=== PATIENT | female | born 1960 | race African-American/Black ===

== ENCOUNTER 2021-06-03 20:03 | Emergency (ER) | payer OTHER, BC, SELFPAY ==
--- NOTE | ~2021-06-03 | CT_ITS ---
EXAMINATION: CT cervical spine wo con DATE: 06/03/2021 21:44 INDICATION: Neck pain TECHNIQUE: Computed tomography (CT) of the cervical spine was performed without intravenous contrast. The dose-length product (DLP) was 300.77 mGy-cm. Automated exposure control and iterative reconstruc tion technique were employed. COMPARISON: None FINDINGS: There is no fracture, dislocation, or subluxation. The vertebral body heights and alignment are normal. There is mild loss of intervertebral disc space height at C6-7. The odontoid is intact. Small degenerative osteophytes project from the anterior endplates of multiple vertebral bodies. The prevertebral soft tissues are normal. There is mild multilevel facet and uncovertebral joint osteoart hritis. Calcified right paratracheal lymph nodes are consistent with old granulomatous disease. IMPRESSION: 1. Mild cervical spondylosis without acute findings. Reviewed, dictated and finalized at location F. H CUTTING MACHINE OPERATOR
[2021-06-03 20:11] VITALS: BP 132/73; PULSE 77; RESP 18; TEMP 36.2; O2SAT 98
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
[2021-06-03 22:40] VITALS: BP 139/81; PULSE 72; RESP 18; O2SAT 100
== END 2021-06-03 22:39 | disposition home or self-care (01) ==
PROVIDERS: Emergency Provider Emergency Medicine; PCP Student in an Organized Health Care Education/Training Program
DX: S16.1XXA Strain of muscle, fascia and tendon at neck level, initial encounter (principal); V49.40XA Driver injured in collision with unspecified motor vehicles in traffic accident, initial encounter
CPT/HCPCS: 72125; 99284; L0140

== ENCOUNTER 2021-06-14 08:33 | Outpatient (CLI) | payer BC, SELFPAY ==
--- NOTE | ~2021-06-14 | XR_ITS ---
EXAMINATION: XR thoracic spine 2V DATE: 06/14/2021 09:15 INDICATION: Back pain. Neck pain. TECHNIQUE: 2 views of thoracic spine standing were obtained. COMPARISON: Chest CT 05/10/2012 FINDINGS: There is 5 degrees dextrocurvature of thoracolumbar spine. There is mild chronic anterior w edging of T6 and T8 vertebral bodies. There is mildly decreased disc height at T6-T7. Calcified media stinal lymph nodes are consistent with old granulomatous disease. IMPRESSION: 1. Mild thoracic spondylosis. Reviewed, dictated and finalized at location A. B SEWER
--- NOTE | ~2021-06-14 | XR_ITS ---
EXAMINATION: XR_[id number]_CR DATE: 06/14/2021 09:15 INDICATION: Neck pain and mid back pain. TECHNIQUE: Flexion-extension views of the cervical spine were obtained. COMPARISON: CT cervical spine 06/03/2021 FINDINGS: Bone alignment is normal. Inferior cervical spine is hypomobile with flexion and extension. Vertebral body heights are normal. There is moderately decreased disc height at C6-C7. There is mild central canal stenosis at C6-C7. No prevertebral soft tissue swelling. IMPRESSION: 1. Moderate spondylosis at C6-C7. 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
== END 2021-06-14 08:34 ==
PROVIDERS: Visit Provider Chiropractor
DX: M47.894 Other spondylosis, thoracic region (principal); M47.892 Other spondylosis, cervical region
CPT/HCPCS: 72040; 72070

== ENCOUNTER 2023-12-26 15:06 | Emergency (ER) | payer BC, SELFPAY ==
--- NOTE | ~2023-12-26 | XR_ITS ---
EXAMINATION: XR chest 2V DATE: 12/26/2023 15:49 INDICATION: Chest pain. TECHNIQUE: Frontal and lateral views of the chest were obtained. COMPARISON: CT abdomen and pelvis 01/20/2016 FINDINGS: There is no pneumonia, pleural effusion, or pneumothorax. The heart size is normal. Calcifi ed mediastinal and right hilar lymph nodes are consistent with old granulomatous disease. There is mi ld chronic anterior wedging of multiple mid thoracic vertebral bodies. IMPRESSION: 1. No acute cardiopulmonary disease. Reviewed, dictated and finalized at location A.
[2023-12-26 15:03] VITALS: BP 172/91; PULSE 86; RESP 16; TEMP 36.7; O2SAT 100
--- NOTE | 2023-12-26 15:18 | ECG_ITS ---
Test Date: 2023-12-26 15:08:56 Measurements Intervals [place] Rate: 83 P: 11 WA: 135 QRS: 32 QRSD: 82 T: 10 QT: 385 QTc: 454 Interpretive Statements SINUS RHYTHM NONSPECIFIC T-WAVE ABNORMALITY No previous ECG available for comparison Electronically Signed On 12-26-2023 17:15:28 CDT by Bernardo Smith M.D.
--- NOTE | 2023-12-26 15:32 | ED.CHESTPAIN ---
HPI - Chest Pain General Chief Complaint: Chest Pain Stated Complaint: Chest pressure Time Seen by Provider: 12/26/23 15:12 History of Present Illness HPI narrative: 62-year-old female with a history of diabetes, hypertension, hyperlipidemia presenting with chest pressure. States that she was eating when she developed left upper quadrant and left-sided chest pressure associated with belching. States that she felt like it was difficult taking a big breath. She has never had this happen before so she became concerned. No leg swelling, palpitations, lightheadedness. No nausea or vomiting. No infectious symptoms. Currently, she states that she is starting to feel improved. Related Data Allergies Allergy/AdvReac Type Severity Reaction Status Date / Time prochlorperazine Allergy Mild Other Verified 12/26/23 15:21 Review of Systems Review of Systems: All systems reviewed & are unremarkable except as noted in HPI and below PMFSH Family History Family History Mother Hypertension Patient's mother is in good health Family history of diabetes mellitus in first degree relative Sibling Patient's brother is in good health Father Patient's father is Social History Social History Smoking status: Never smoker Second hand tobacco smoke exposure: No Alcohol intake: never Exam Narrative: GENERAL: Well-appearing, well-nourished, and in no acute distress. HEAD: Normocephalic, atraumatic. EYES: PERRLA and EOMI. ENT: Grossly unremarkable NECK: Supple. CHEST: Clear to auscultation. No respiratory distress. HEART: Regular rate and rhythm ABDOMEN: Soft, nontender, nondistended EXTREMITIES: Normal range of motion. No edema. SKIN: Warm, dry, no rash. NEURO: No focal deficits. Alert and oriented x3. PSYCH: Normal mood and affect. Course Vital Signs Vital signs: Vital Signs Temperature 98.0 F 12/26/23 15:03 Pulse Rate 86 12/26/23 15:03 Respiratory Rate 16 12/26/23 15:03 Blood Pressure 172/91 H 12/26/23 15:03 Pulse Oximetry 100 12/26/23 15:03 Oxygen Delivery Room Air 12/26/23 15:03 Temperature 98.2 F 12/26/23 22:18 Pulse Rate 78 12/26/23 22:18 Respiratory Rate 18 12/26/23 22:18 Blood Pressure 152/72 H 12/26/23 22:18 Pulse Oximetry 98 12/26/23 22:18 Oxygen Delivery Room Air 12/26/23 15:03 MDM - Chest Pain MDM Narrative Medical decision making narrative: 62-year-old female presenting with chest pressure, belching, shortness of breath. Patient hypertensive otherwise vitals are within normal limits. EKG per my interpretation shows normal sinus rhythm, nonspecific T-wave flattening, no ST elevations or depressions. Troponin undetectable. Creatinine is 1.20, patient states that she does have a history of slightly bumped kidney numbers. Repeat EKG shows normal sinus rhythm, resolution of the nonspecific T-wave changes, no ST elevations or depressions. Troponin remains undetectable. Patient given a GI cocktail and states that it did help with her epigastric pain. She does not have pain in her chest any more. 6 hour troponin remains undetectable. Feel she is safe for outpatient management. States that she has a prescription for omeprazole, advised that she start taking this daily for the next few weeks. Advised close PCP follow-up. Strict return precautions given. Patient is agreeable this plan. Discharged in stable condition. Differential Diagnosis Differential diagnosis: Likely fracture of rib, stable angina, atypical chest pain, costochondritis and chest pain Medical Records Data Attestation: I reviewed the patient's medical records. Lab Data Attestation: I reviewed the patient's lab results. 12/26/23 15:26 12/26/23 15:26 Labs: Lab Results 12/26/23 12/26/23 12/26/23 Range/Units 15:26 18:06 19:53 W
[2023-12-26 15:46] LABS: Alanine Aminotransferase 20 U/L (6-35); Albumin Level 4.6 g/dL (3.5-5.1); Alkaline Phosphatase 61 U/L (38-126); Anion Gap 13 mmol/L (4-12); Aspartate Amino Transferase 29 U/L (14-36); Bilirubin,Total 0.4 mg/dL (0.2-1.3); Blood Urea Nitrogen 17 mg/dL (7-17); Calcium 9.2 mg/dL (8.4-10.2); Carbon Dioxide 25 mmol/L (22-30); Chloride 100 mmol/L (98-107); Estimated CRCL calculation 37 ml/min; Estimated Glomerular Filt Rate 55; Glucose 107 mg/dL (65-110); Lipase 228 U/L (23-300); Potassium 4.1 mmol/L (3.4-5.0); Sodium 138 mmol/L (137-145)
[2023-12-26 15:50] LABS: Basophils Percent Auto 0.8 % (0.2-1.2); Eosinophils Absolute Auto 0.1 K/mm3 (0-0.3); Eosinophils Percent Auto 2.6 % (0-4.4); Hematocrit 38.5 % (37.0-47.0); Hemoglobin 12.6 g/dL (12.0-15.0); Immature Granulocyte Absolute 0.01 K/mm3 (0.00-0.031); Immature Granulocyte Percent A 0.3 % (0-0.5); Lymphocytes Absolute Auto 1.47 K/mm3 (0.9-3.2); Lymphocytes Percent Auto 38.6 % (18.3-44.2); Mean Corpuscular HGB Conc 32.7 g/dl (32-36); Mean Corpuscular Hemoglobin 28.7 pg (26-34); Mean Corpuscular Volume 87.7 fl (80-100); Mean Platelet Volume 11.1 fl (7.4-10.4); Monocytes Absolute Auto 0.4 K/mm3 (0.1-0.6); Neutrophils Absolute Auto 1.8 K/mm3 (1.3-6.7); Neutrophils Percent Auto 47.7 % (45.5-73.1); Platelet Count Result 210 k/mm3 (150-375); Red Blood Count 4.39 M/mm3 (4.2-5.4); Red Cell Distribution Width 14.2 % (11.5-14.5); White Blood Count 3.8 K/mm3 (4.5-10.0)
[2023-12-26 15:57] LABS: Troponin I < 0.012 ng/mL (0.000-0.034)
[2023-12-26 16:00] VITALS: BP 166/94; PULSE 73; RESP 16; O2SAT 100
[2023-12-26 16:25] LABS: INR 0.9; Prothrombin Time 12.8 Seconds (11.1-14.7)
[2023-12-26 16:35] LABS: D Dimer 0.52 ug/mL (<0.48)
[2023-12-26 16:59] VITALS: BP 159/81; PULSE 71; RESP 16; O2SAT 100
[2023-12-26 18:00] VITALS: BP 168/89; PULSE 74; RESP 16; O2SAT 100
--- NOTE | 2023-12-26 18:04 | ECG_ITS ---
Test Date: 2023-12-26 18:10:19 Measurements Intervals [place] Rate: 71 P: 4 VT: 138 QRS: 31 QRSD: 81 T: 15 QT: 395 QTc: 430 Interpretive Statements SINUS RHYTHM NORMAL ELECTROCARDIOGRAM Compared to ECG 12/26/2023 15:08:56 NO SIGNIFICANT CHANGE Electronically Signed On 12-27-2023 07:12:17 CDT by Denton Izquierdo M.D.
[2023-12-26 18:30] VITALS: BP 156/87; PULSE 73; RESP 20; O2SAT 100
[2023-12-26 18:37] LABS: Troponin I < 0.012 ng/mL (0.000-0.034)
[2023-12-26 19:58] LABS: Add Urine Microscopic? NO; Appearance Urine Clear (Clear); Bilirubin Urine Negative (Negative); Blood Urine Negative (Negative); Color Urine Yellow (Yellow); Glucose Urine UA Negative (Negative); Ketones Urine Negative (Negative); Leukocyte Esterase Ur Negative LEU/UL (Negative); Nitrate Urine Negative (Negative); Protein Urine Negative (Negative); Specific Grav Ur 1.006 (1.001-1.035); Urobilinogen Urine 0.2 mg/dL (<2.0)
[2023-12-26] MEDS: BELLADONNA ALK/PHENOB ELIX 10 ML, MAG HYDROX/ALUMINUM HYD/SIMETH 30 ML, LIDOCAINE HCL 2... PO (20:04)
[2023-12-26 21:20] LABS: Troponin I < 0.012 ng/mL (0.000-0.034)
[2023-12-26 22:18] VITALS: BP 152/72; PULSE 78; RESP 18; TEMP 36.8; O2SAT 98
== END 2023-12-26 22:20 | disposition home or self-care (01) ==
PROVIDERS: Emergency Provider Emergency Medicine
DX: R07.89 Other chest pain (principal); I10 Essential (primary) hypertension; E11.9 Type 2 diabetes mellitus without complications; E78.5 Hyperlipidemia, unspecified; R94.31 Abnormal electrocardiogram [ECG] [EKG]
CPT/HCPCS: 36415; 71046; 80053; 81003; 83690; 84484; 85025; 85380; 85610; 85730; 93005; 99284; A9270